=== PATIENT | female | born 1985 | race Caucasian/White ===

== ENCOUNTER 2019-03-01 15:32 | Emergency (ER) | payer OTHER ==
[2019-03-01] MEDS ORDERED: Ketorolac INJ* 30 MG/ML 1 ML VIAL IV PUSH ONE (16:41)
[2019-03-01] MEDS ORDERED: Ondansetron INJ* 2 MG/ML VIAL IV ONE (16:42)
[2019-03-01] MEDS ORDERED: Famotidine IV* 10 MG/ML 2 ML (20 mg) IV SLOW PU ONE (16:42)
[2019-03-01] MEDS ORDERED: Al Hydrox/Mg Hydrox/Simet LIQ* 30 ML UDC PO ONE (16:43)
[2019-03-01] MEDS ORDERED: Lidocaine 2% VISCOUS* 15 ML UDC PO ONE (16:43)
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
[2019-03-01] MEDS ORDERED: NS 0.9% 1000 ML** 1,000 ML IV ONE (16:46)
[2019-03-01] MEDS ORDERED: Albuterol HFA INHALER* 8 gm MDI INH ONE (19:21)
[2019-03-01 20:28] VITALS: BP 126/80
--- NOTE | 2019-03-02 08:10 | UC ---
- EKG/XRAY/CT Xray Comments: wet read correct Course/Dx - Diagnoses Provider Diagnoses: Anxiety, Esophagitis Discharge - Sign-Out/Discharge Documenting (check all that apply): Post-Discharge Follow Up All imaging exams completed and their final reports reviewed: Yes - Discharge Plan Condition: Stable Disposition: HOME Prescriptions: Famotidine TAB 40 MG(NF) [Pepcid TAB 40 MG(NF)] 40 mg PO DAILY #30 tab Patient Education Materials: Dehydration (ED), Diet for Stomach Ulcers and Gastritis (ED), Esophagitis (ED) Referrals: Winter Chacon MD [Primary Care Provider] - 1 Day - Billing Disposition and Condition Condition: STABLE Disposition: Home
== END 2019-03-01 20:13 | disposition home or self-care (01) ==
LOC: UCEAST 15:32
DX: K20.9 Esophagitis, unspecified (principal); F41.9 Anxiety disorder, unspecified; F32.9 Major depressive disorder, single episode, unspecified; F43.10 Post-traumatic stress disorder, unspecified; Z88.0 Allergy status to penicillin
CPT/HCPCS: 71046; 81003; 84702; 96360; 96374; 96375; 99213; A9270-GY; G0463; J1885; J2405

== ENCOUNTER → 2019-03-01 20:53 | Emergency (ER) | payer OTHER ==
--- NOTE | 2019-03-01 21:01 | UC ---
UC General HPI - HPI Summary HPI Summary: patient returns to the urgent care----fearful if something happens tonight she will not be able to get to [facility] and the ambulance would take her to [place] - History of Current Complaint Chief Complaint: UCGeneralIllness Stated Complaint: ANXIETY Time Seen by Provider: 03/01/19 20:55 Hx Obtained From: Patient Hx Last Menstrual Period: 1 month Onset/Duration: Gradual Onset, Lasting Days, Worse Since - today Timing: Constant Onset Severity: Severe Current Severity: Severe - Allergy/Home Medications Allergies/Adverse Reactions: Allergies Allergy/AdvReac Type Severity Reaction Status Date / Time acetaminophen Allergy Severe restless, Verified 03/01/19 16:10 SOB amoxicillin Allergy Severe Hives Verified 03/01/19 16:10 clavulanic acid Allergy Severe Hives Verified 03/01/19 16:10 [From Augmentin] cyclobenzaprine Allergy Severe Nausea Verified 03/01/19 16:10 erythromycin base Allergy Severe respiratory Verified 03/01/19 21:07 reaction Penicillins Allergy Severe Hives Verified 03/01/19 16:10 prochlorperazine Allergy Severe anaphylaxis Verified 03/01/19 16:10 [From Compazine] promethazine [From Phenergan] Allergy Severe anaphylaxis Verified 03/01/19 16:10 tapentadol Allergy Severe throat Verified 03/01/19 16:10 closing ENVIRONMENTAL Allergy THROAT Uncoded 03/01/19 16:10 CLOSED PMH/Surg Hx/FS Hx/Imm Hx Previously Healthy: No Psychological History: Anxiety, Depression, Post Traumatic Stress Disorder Other History Of: Negative For: HIV, Hepatitis B, Hepatitis C, Anticoagulant Therapy - Surgical History Surgical History: Yes Surgery Procedure, Year, and Place: C5-6 CERVICAL FUSION AND PLATING, 2006, [place] - Family History Known Family History: Positive: Cardiac Disease, Hypertension Family History: Substance use disorder, family violence and abuse - Social History Occupation: Disabled Lives: With Family Alcohol Use: Occasionally Alcohol Amount: 3 PER MONTH Substance Use Type: Marijuana Smoking Status (MU): Never Smoked Tobacco Have You Smoked in the Last Year: No Review of Systems All Other Systems Reviewed And Are Negative: Yes Constitutional: Positive: Negative Skin: Positive: Negative Eyes: Positive: Negative ENT: Positive: Negative Respiratory: Positive: Cough Cardiovascular: Positive: Negative Gastrointestinal: Positive: Vomiting Genitourinary: Positive: Negative Motor: Positive: Negative Neurovascular: Positive: Negative Musculoskeletal: Positive: Negative Neurological: Positive: Negative Psychological: Positive: Anxious Is Patient Immunocompromised?: No Physical Exam Triage Information Reviewed: Yes Appearance: Well-Appearing, No Pain Distress, Well-Nourished Vital Signs Reviewed: Yes Eye Exam: Normal Eyes: Positive: Conjunctiva Clear ENT Exam: Normal ENT: Positive: Normal ENT inspection, Hearing grossly normal. Negative: Nasal congestion, Nasal drainage, TMs normal, Trismus, Muffled voice, Hoarse voice, Dental tenderness Dental Exam: Normal Neck exam: Normal Neck: Positive: Supple, Nontender, No Lymphadenopathy Respiratory Exam: Normal Respiratory: Positive: Chest non-tender, Lungs clear, Normal breath sounds, No respiratory distress, No accessory muscle use Cardiovascular Exam: Normal Cardiovascular: Positive: RRR, No Murmur, Pulses Normal, Brisk Capillary Refill Abdominal Exam: Normal Abdomen Description: Positive: Nontender, No Organomegaly, Soft. Negative: CVA Tenderness (R), CVA Tenderness (L) Bowel Sounds: Positive: Present Musculoskeletal Exam: Normal Musculoskeletal: Positive: Strength Intact, ROM Intact, No Edema Neurological Exam: Normal Neurological: Positive: Alert, Muscle Tone Normal Psychological Exam: Other Psychological: Positive: Other: - anxious Skin Exam: Normal Course/Dx - Course Course Of Treatment: transfer patient to ambulance by EMS--- - Diagnoses Provider Diagnosis: Anxiety - Physician Notifications Time Discussed With Above Provider: 21:05 Anjana MILLER Discharge - Sign-Out/Discharge Documenting (check all that apply): Patient Departure All imaging exams completed and their final reports reviewed: No Studies - Discharge Plan Condition: Guarded Disposition: TRANS HIGHER LVL OF CARE FAC Referrals: Winter Chacon MD [Primary Care Provider] - - Billing Disposition and Condition Condition: GUARDED Disposition: Trans Higher Lvl of Care Fac - Attestation Statements Provider Attestation: I was available for consult. This patient was seen by the LUCRET[facility]. The patient was not presented to , seen by or examined by ne -Robert Troncoso MD
[2019-03-01 21:06] VITALS: BP 138/80
== END | disposition short-term general hospital (02) ==
LOC: UCEAST 20:53
DX: F41.9 Anxiety disorder, unspecified (principal)

== ENCOUNTER 2019-03-01 21:50 | Emergency (ER) | payer OTHER ==
[2019-03-01] MEDS ORDERED: ALPRAZolam TAB* 0.5 MG PO ONE (22:29)
[2019-03-01 22:59] LABS: ABS Basophils 0.1 10^3/ul (0-0.2); ABS Eosinophils 0.1 10^3/ul (0-0.6); ABS Lymphocytes 2.2 10^3/ul (1.0-4.8); ABS Monocytes 0.7 10^3/ul (0-0.8); ABS Neutrophils 7.4 10^3/ul (1.5-7.7); Eosinophil % 0.6 %; Hematocrit 39 % (35-47); Hemoglobin 13.1 g/dL (12.0-16.0); Lymphocyte % 20.7 %; Mean Corpuscular HGB Conc 33 g/dL (31-36); Mean Corpuscular Hemoglobin 31 pg (27-31); Mean Corpuscular Volume 92 fL (80-97); Mean Platelet Volume 8.1 fL (7.4-10.4); Platelet Count 372 10^3/uL (150-450); Red Blood Count 4.28 10^6 /uL (3.70-4.87); Red Cell Distribution Width 14 % (10-15); White Blood Count 10.4 10^3/uL (3.5-10.8)
[2019-03-01 23:25] LABS: ALT 14 U/L (7-52); AST 14 U/L (13-39); Albumin 4.8 g/dL (3.2-5.2); Albumin/Globulin Ratio 1.9 (1-3); Alkaline Phosphatase 72 U/L (34-104); Amylase 40 U/L (29-103); Anion Gap 11 mmol/L (2-11); BUN/Creatinine Ratio 17.5 (8-20); Blood Urea Nitrogen 14 mg/dL (6-24); CO2 Carbon Dioxide 23 mmol/L (22-32); Calcium 9.6 mg/dL (8.6-10.3); Chloride 104 mmol/L (101-111); EGFR African American 99.4 (>60); EGFR Non-African American 82.1 (>60); Globulin 2.5 g/dL (2-4); Glucose 91 mg/dL (70-100); Potassium 3.5 mmol/L (3.5-5.0); Sodium 138 mmol/L (135-145); Total Protein 7.3 g/dL (6.4-8.9)
[2019-03-01 23:29] LABS: Acetaminophen < 15 mcg/mL; Alcohol < 10 mg/dL (<10); Salicylate < 2.50 mg/dL (<30)
[2019-03-01 23:33] LABS: HCG Pregnancy < 0.60 mIU/mL
[2019-03-01 23:44] LABS: TSH (Thyroid Stimulating Horm) 1.62 mcIU/mL (0.34-5.60)
[2019-03-02] MEDS ORDERED: LORazepam TAB(*) 1 MG PO ONE (02:44)
--- NOTE | 2019-03-02 03:59 | ED ---
Complex/Multi-Sys Presentation - HPI Summary HPI Summary: Patient is a 34 y/o F presenting to ED with complaints of coughing, vomiting and concerns of FB in her throat. She had been seen earlier today at for similar Sx. Patient had received maalox, pepcid, and toradol with some relief in Sx at and was discharged. However, she returned to later in the day. Per provider note, patient was "fearful if something happens tonight she will not be able to get to [facility] and the ambulance would take her to [place]". EMS was called, [facility] was [facility]. had also reported the patient seemed to be experiencing anxiety and acceleration. In the room, patient states that she has been coughing for the past 4-5 days. She claims that it feels something is stuck in her throat and states that she has been coughing so much that she vomits. PMHx of PTSD, panic attacks, patient claims that she has not slept in the past four days as well. 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 She is additionally on Valium for anxiety. On triage, associated severity is rated 3/10 , nothing is noted to aggravate/alleviate Sx. Home medications and allergies are reviewed. - History Of Current Complaint Chief Complaint: EDPsychosocial Time Seen by Provider: 03/01/19 22:19 Hx Obtained From: Patient Onset/Duration: Lasting Days - 4-5 days, Still Present Timing: Constant, Days - 4-5 days Severity Currently: Mild Severity Initially: Mild Aggravating Factor(s): nothing Alleviating Factor(s): nothing Associated Signs And Symptoms: Positive: Cough, Vomiting, Other - FB in throat, sleep disturbance - Allergies/Home Medications Allergies/Adverse Reactions: Allergies Allergy/AdvReac Type Severity Reaction Status Date / Time acetaminophen Allergy Severe restless, Verified 03/01/19 16:10 SOB amoxicillin Allergy Severe Hives Verified 03/01/19 16:10 clavulanic acid Allergy Severe Hives Verified 03/01/19 16:10 [From Augmentin] cyclobenzaprine Allergy Severe Nausea Verified 03/01/19 16:10 erythromycin base Allergy Severe respiratory Verified 03/01/19 21:07 reaction Penicillins Allergy Severe Hives Verified 03/01/19 16:10 prochlorperazine Allergy Severe anaphylaxis Verified 03/01/19 16:10 [From Compazine] promethazine [From Phenergan] Allergy Severe anaphylaxis Verified 03/01/19 16:10 tapentadol Allergy Severe throat Verified 03/01/19 16:10 closing ENVIRONMENTAL Allergy THROAT Uncoded 03/01/19 16:10 CLOSED PMH/Surg Hx/FS Hx/Imm Hx Endocrine/Hematology History: Denies: Hx Anticoagulant Therapy, Hx Diabetes, Hx Thyroid Disease Cardiovascular History: Reports: Other Cardiovascular Problems/Disorders - ARTERIAL VENOUS MALFORMATION RIGHT HAND Denies: Hx Congestive Heart Failure, Hx Deep Vein Thrombosis, Hx Hypertension , Hx Myocardial Infarction, Hx Pacemaker/ICD Respiratory History: Reports: Hx Asthma - NO INHALER FOR MANY YEARS Denies: Hx Chronic Obstructive Pulmonary Disease (COPD), Hx Lung Cancer, Hx Pneumonia, Hx Pulmonary Embolism, Other Respiratory Problems/Disorders GI History: Reports: Hx Irritable Bowel Denies: Hx Gall Bladder Disease, Hx Gastrointestinal Bleed, Hx Ulcer, Hx Urosepsis, Other GI Disorders History: Denies: Hx Kidney Stones, Hx Renal Disease Musculoskeletal History: Reports: Hx Bursitis - SHOULDERS Denies: Other Musculoskeletal History Sensory History: Denies: Hx Contacts or Glasses, Hx Hearing Aid Opthamlomology History: Denies: Hx Contacts or Glasses Neurological History: Reports: Other Neuro Impairments/Disorders - CARTILAGE DAMAGE TO SHOULDERS Denies: Hx Dementia, Hx Migraine, Hx Seizures, Hx Transient Ischemic Attacks (TIA) Psychiatric History: Reports: Hx Anxiety - ON MEDS, Hx Depression - ON MEDS Denies: Hx Schizophrenia, Hx Bipolar Disorder - Surgical History Surgery Procedure, Year, and Place: C5-6 CERVICAL FUSION AND PLATING, 2006, [place] Hx Anesthesia Reactions: Yes - NEEDS ALOT OF NOVACAINE - Immunization History Immunizations Up to Date: Yes Infectious Disease History: No Infectious Disease History: Denies: Traveled Outside the [place] in Last 30 Days - Family History Known Family History: Positive: Cardiac Disease, Hypertension Family History: Substance use disorder, family violence and abuse - Social History Alcohol Use: Occasionally Alcohol Amount: 3 PER MONTH Substance Use Type: Reports: Marijuana Smoking Status (MU): Never Smoked Tobacco Have You Smoked in the Last Year: No Review of Systems ENT: Other - patient reports feeling as if an FB is stuck in her throat Positive: Cough Positive: Vomiting Psychological: Other - positive - sleep distrubance All Other Systems Reviewed And Are Negative: Yes Physical Exam - Summary Physical Exam Summary: VITAL SIGNS: Reviewed. GENERAL: Patient is a well-developed and nourished female who is shaking in the stretcher. Patient is not in any acute respiratory distress. HEAD AND FACE: No signs of trauma. No ecchymosis, hematomas or skull depressions. No sinus tenderness. EYES: PERRLA, EOMI x 2, No injected conjunctiva, no nystagmus. EARS: Hearing grossly intact. Ear canals and tympanic membranes are within normal limits. MOUTH: Oropharynx within normal limits. NECK: Supple, trachea is midline, no adenopathy, no JVD, no carotid bruit, no c- spine tenderness, neck with full ROM CHEST: Symmetric, no tenderness at palpation LUNGS: Clear to auscultation bilaterally. No wheezing or crackles. CVS: Regular rate and rhythm, S1 and S2 present, no murmurs or gallops appreciated. ABDOMEN: Soft, non-tender. No signs of distention. No rebound no guarding, and no masses palpated. Bowel sounds are normal. EXTREMITIES: FROM in all major joints, no edema, no cyanosis or clubbing. NEURO: Alert and oriented x 3. No acute neurological deficits. Speech is normal and follows commands. SKIN: Dry and warm PSYCH: anxious, impulsive. Triage Information Reviewed: Yes Vital Signs On Initial Exam: Initial Vitals Temp Pulse Resp BP Pulse Ox 96.8 F 66 16 141/96 99 03/01/19 22:06 03/01/19 22:06 03/01/19 22:06 03/01/19 22:06 03/01/19 22:06 Vital Signs Reviewed: Yes Diagnostics - Vital Signs Vital Signs Temp Pulse Resp BP Pulse Ox 03/02/19 03:00 18 03/02/19 01:10 100 F 63 18 133/75 99 03/01/19 22:40 16 03/01/19 22:06 96.8 F 66 16 141/96 99 - Laboratory Lab Results: Lab Results 03/01/19 03/01/19 Range/Units 22:52 22:52 WBC 10.4 (3.5-10.8) 10^3/uL RBC 4.28 (3.70-4.87) 10^6 /uL Hgb 13.1 (12.0-16.0) g/dL Hct 39 (35-47) % MCV 92 (80-97) fL MCH 31 (27-31) pg MCHC 33 (31-36) g/dL RDW 14 (10-15) % Plt Count 372 (150-450) 10^3/uL MPV 8.1 (7.4-10.4) fL Neut % (Auto) 71.3 % Lymph % (Auto) 20.7 % Kleberg % (Auto) 6.4 % Eos % (Auto) 0.6 % Baso % (Auto) 1.0 % Absolute Neuts (auto) 7.4 (1.5-7.7) 10^3/ul Absolute Lymphs (auto) 2.2 (1.0-4.8) 10^3/ul Absolute Monos (auto) 0.7 (0-0.8) 10^3/ul Absolute Eos (auto) 0.1 (0-0.6) 10^3/ul Absolute Basos (auto) 0.1 (0-0.2) 10^3/ul Absolute Nucleated RBC 0.0 10^3/ul Nucleated RBC % 0.0 Sodium 138 (135-145) mmol/L Potassium 3.5 (3.5-5.0) mmol/L Chloride 104 (101-111) mmol/L Carbon Dioxide 23 (22-32) mmol/L Anion Gap 11 (2-11) mmol/L BUN 14 (6-24) mg/dL Creatinine 0.80 (0.51-0.95) mg/dL Est GFR ( Amer) 99.4 (>60) Est GFR (Non-Af Amer) 82.1 (>60) BUN/Creatinine Ratio 17.5 (8-20) Glucose 91 (70-100) mg/dL Calcium 9.6 (8.6-10.3) mg/dL Total Bilirubin 0.50 (0.2-1.0) mg/dL AST 14 (13-39) U/L ALT 14 (7-52) U/L Alkaline Phosphatase 72 (34-104) U/L Total Protein 7.3 (6.4-8.9) g/dL Albumin 4.8 (3.2-5.2) g/dL Globulin 2.5 (2-4) g/dL Albumin/Globulin Ratio 1.9 (1-3) Amylase 40 (29-103) U/L Lipase 11 (11.0-82.0) U/L TSH 1.62 (0.34-5.60) mcIU/mL Beta HCG, Quant < 0.60 mIU/mL Salicylates < 2.50 (<30) mg/dL Acetaminophen < 15 mcg/mL Serum Alcohol < 10 (<10) mg/dL Result Diagrams: 03/01/19 22:52 03/01/19 22:52 Lab Statement: Any lab studies that have been ordered have been reviewed, and results considered in the medical decision making process. Re-Evaluation - Re-Evaluation First Eval Re-Evaluation Time: 23:35 Comment: Scott is medically cleared for MHE. Complex Multi-Symp Course/Dx Course Of Treatment: Patient is a 34 y/o F presenting to ED with complaints of coughing, N/V, and concerns of FB in her throat. She had been seen earlier today at for similar Sx. Patient had received maalox, pepcid, and toradol with some relief in Sx at and was discharged. However, she returned to later in the day. Per provider note, patient was "fearful if something happens tonight she will not be able to get to [facility] and the ambulance would take her to [place]". EMS was called, patient was [facility] to [facility]. had also reported the patient seemed to be experiencing anxiety and acceleration. In the room, patient states that she has been coughing for the past 4-5 days. She claims that it feels something is stuck in her throat and states that she has been coughing so much that she vomits. PMHx of PTSD, panic attacks, patient claims that she has not slept in the past four days as well. 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 She is additionally on Valium for anxiety. On physical exam, susie is noted to be shaking, anxious-appearing, and impulsive. Labs were unremarkable. Patient was medically cleared for MHE. During ED course, patient received ativan 2 mg PO and Xanax 0.5 mg PO. Scott is medically cleared for MHE. 0242 [facility] worker, Josias Rodriguez, reports that the patient's case has been reviewed by Dr. Gomez. Patient will be a mental health hold until the patient can be evaluated by psychiatrist in the morning. Patient is signed out to Dr. Bear at 0700 03/02/19 shift change pending psychiatrist evaluation of patient. - Diagnoses Provider Diagnoses: Anxiety - Physician Notifications Discussed Care Of Patient With: Hyacinth Gomez Time Discussed With Above Provider: 02:42 Instructed by Provider To: Other - 0242 - worker, Josias Rodriguez, reports that the patient's case has been reviewed by Dr. Gomez. Patient will be a mental health hold until the patient can be evaluated by psychiatrist in the morning. Discharge - Sign-Out/Discharge Documenting (check all that apply): Sign-Out Patient Signing out patient TO: Hemant Bear - Discharge Plan Referrals: Winter Chacon MD [Primary Care Provider] - - Attestation Statements Document Initiated by Scribe: Yes Documenting Scribe: MOSHE KING Provider For Whom Scribe is Documenting (Include Credential): KELSEY CRAIN MD Scribe Attestation: MOSHE Dubois scribed for KELSEY CRAIN MD on 03/02/19 at 0613. Status of Scribe Document: Ready
[2019-03-02] MEDS ORDERED: HYDROmorphone TAB* 4 MG PO ONE (04:18)
--- NOTE | 2019-03-02 06:44 | PN ---
ED Flex Patient Progress Note Date of Service: 03/01/19 Subjective: This is a 34 year-old F who is pending admission to [facility] / transfer to another psychiatric facility / discharge to home / or being observed secondary to anxiety. Pt. examined in room 20 at 0640. Pt. lying in bed awake. Very talkative. Offers no new complaints. Objective: Vitals: Most recent vital signs documented below. General NAD, Alert and oriented x3. Laboratory: Current laboratory results documented below. Assessment: Anxiety. Plan: Pending re-evaluation. Vital Signs Temp Pulse Resp BP Pulse Ox 100 F 63 16 133/75 99 03/02/19 01:10 03/02/19 01:10 03/02/19 05:02 03/02/19 01:10 03/02/19 01:10 Lab Results - Entire Visit 03/01/19 03/01/19 22:52 22:52 WBC 10.4 RBC 4.28 Hgb 13.1 Hct 39 MCV 92 MCH 31 MCHC 33 RDW 14 Plt Count 372 MPV 8.1 Neut % (Auto) 71.3 Lymph % (Auto) 20.7 Bennett % (Auto) 6.4 Eos % (Auto) 0.6 Baso % (Auto) 1.0 Absolute Neuts (auto) 7.4 Absolute Lymphs (auto) 2.2 Absolute Monos (auto) 0.7 Absolute Eos (auto) 0.1 Absolute Basos (auto) 0.1 Absolute Nucleated RBC 0.0 Nucleated RBC % 0.0 Sodium 138 Potassium 3.5 Chloride 104 Carbon Dioxide 23 Anion Gap 11 BUN 14 Creatinine 0.80 Est GFR ( Amer) 99.4 Est GFR (Non-Af Amer) 82.1 BUN/Creatinine Ratio 17.5 Glucose 91 Calcium 9.6 Total Bilirubin 0.50 AST 14 ALT 14 Alkaline Phosphatase 72 Total Protein 7.3 Albumin 4.8 Globulin 2.5 Albumin/Globulin Ratio 1.9 Amylase 40 Lipase 11 TSH 1.62 Beta HCG, Quant < 0.60 Salicylates < 2.50 Acetaminophen < 15 Serum Alcohol < 10
--- NOTE | 2019-03-02 07:18 | ED ---
Progress - Progress Note Progress Note: The patient is a sign-out from Dr. Leslye Faye MD, to Dr. Hemant Bear MD, at change of shift at 0700 pending MHU hold and disposition. - Consult/PCP Time Called: 23:00 Re-Evaluation - Re-Evaluation First Eval Re-Evaluation Time: 23:35 Comment: Patienet is medically cleared for MHE. Course/Dx - Diagnoses Provider Diagnoses: Anxiety - Provider Notifications Time Discussed With Above Provider: 02:42 Instructed by Provider To: Other - 0242 - MH worker, Josias Rodriguez, reports that the patient's case has been reviewed by Dr. Gomez. Patient will be a mental health hold until the patient can be evaluated by psychiatrist in the morning. Discharge - Sign-Out/Discharge Documenting (check all that apply): Receiving Sign-Out Receiving patient FROM: Leslye Faye - Patient is a sign-out at shift change pending MHU hold and disposition. - Discharge Plan Referrals: Winter Chacon MD [Primary Care Provider] - - Attestation Statements Document Initiated by Katieibe: Yes Documenting Scribe: Caty Craig Provider For Whom Sanket is Documenting (Include Credential): Dr. Hemant Bear MD Scribe Attestation: Caty Dubois scribed for Dr. Hemant Bear MD on 03/02/19 at 0823. Scribe Documentation Reviewed: Yes Provider Attestation: The documentation as recorded by the Caty esquivel accurately reflects the service I personally performed and the decisions made by me, Dr. Hemant Bear MD Status of Scribe Document: Viewed
[2019-03-02] MEDS ORDERED: Famotidine TAB* 20 MG PO ONE (08:39)
--- NOTE | 2019-03-02 09:18 | ED ---
Progress - Progress Note Progress Note: The patient is a sign-out from Dr. Leslye Faye MD, to Dr. Hemant Bear MD, at change of shift at 0700 03/02/2019 pending MHU hold to talk to psychiatrist and disposition. Per mental health human resource manager Uzair at 0920, the patient is cleared for discharge by Dr. Salgado, psychiatry, with a diagnosis of anxiety and follow up with [facility]. She agrees with this plan and understands the need for return to the ED for any new or worsening symptoms. Course/Dx - Course Course Of Treatment: Patient is a 34 y/o F presenting to ED with complaints of coughing, N/V, and concerns of FB in her throat. She had been seen earlier today at for similar Sx. Patient had received maalox, pepcid, and toradol with some relief in Sx at and was discharged. However, she returned to later in the day. Per provider note, patient was "fearful if something happens tonight she will not be able to get to [facility] and the ambulance would take her to [place]". EMS was called, [facility] had also reported the patient seemed to be experiencing anxiety and acceleration. In the room, patient states that she has been coughing for the past 4-5 days. She claims that it feels something is stuck in her throat and states that she has been coughing so much that she vomits. PMHx of PTSD, panic attacks, patient claims that she has not slept in the past four days as well. 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 She is additionally on Valium for anxiety. On physical exam, patinet is noted to be shaking, anxious-appearing, and impulsive. Labs were unremarkable. Patient was medically cleared for MHE. During ED course, patient received ativan 2 mg PO and Xanax 0.5 mg PO. Patienet is medically cleared for MHE. 0[facility] worker, Josias Rodriguez, reports that the patient's case has been reviewed by Dr. Gomez. Patient will be a mental health hold until the patient can be evaluated by psychiatrist in the morning. Patient is signed out to Dr. Bear at 0700 03/02/19 shift change pending psychiatrist evaluation of patient. - Diagnoses Provider Diagnoses: Anxiety - Provider Notifications Time Discussed With Above Provider: 09:20 Instructed by Provider To: Other - Uzair from mental health services reports that the patient is clear for discharge by Dr. Salgado, psychiatry, with dx of anxiety and follow up with [facility]. Discharge - Sign-Out/Discharge Documenting (check all that apply): Patient Departure - Patient will be discharged home., Receiving Sign-Out Receiving patient FROM: Leslye Faye - Patient is a sign-out at shift change pending MHU hold and disposition. Patient Received Moderate/Deep Sedation with Procedure: No - Discharge Plan Condition: Stable Disposition: HOME Patient Education Materials: Anxiety (ED) Referrals: Winter Chacon MD [Primary Care Provider] - [facility] [Outside] - 3 Days Additional Instructions: Follow up with [facility] in 2-3 days. RETURN TO THE EMERGENCY DEPARTMENT FOR ANY NEW OR WORSENING SYMPTOMS. - Billing Disposition and Condition Condition: STABLE Disposition: Home - Attestation Statements Document Initiated by Scribe: Yes Documenting Scribe: Caty Craig Provider For Whom Scribe is Documenting (Include Credential): Dr. Hemant Bear MD Scribe Attestation: Caty Dubois scribed for Dr. Hemant Bear MD on 03/02/19 at 0932. Status of Scribe Document: Ready
[2019-03-02] MEDS ORDERED: hydrOXYzine HCL TAB* 25 MG PO ONE (10:19)
[2019-03-02 11:45] VITALS: BP 135/55
== END 2019-03-02 11:39 | disposition home or self-care (01) ==
LOC: ED 21:50
DX: F41.9 Anxiety disorder, unspecified (principal); M43.22 Fusion of spine, cervical region; Q27.31 Arteriovenous malformation of vessel of upper limb; F32.9 Major depressive disorder, single episode, unspecified; Z88.6 Allergy status to analgesic agent; Z88.1 Allergy status to other antibiotic agents; Z88.5 Allergy status to narcotic agent; Z88.0 Allergy status to penicillin; Z88.8 Allergy status to other drugs, medicaments and biological substances
CPT/HCPCS: 36415; 80053; 80320; 80329; 82150; 83690; 84443; 84702; 85025; 99283; A9270-GY; G0480

== ENCOUNTER 2019-07-15 16:36 | Inpatient (IN) | payer OTHER ==
[2019-07-15] MEDS ORDERED: LORazepam TAB(*) 1 MG PO ONE (17:19)
[2019-07-15] MEDS ORDERED: Ondansetron ODT TAB* 4 MG PO ONE (17:20)
--- NOTE | 2019-07-15 17:44 | ED ---
Complex/Multi-Sys Presentation - HPI Summary HPI Summary: Pt is a 34 y/o F presenting to the ED with a chief complaint of multiple symptoms present. 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 She reports that she has been having some suicidal thoughts recently. She does not have a specific plan, however she says that if someone were to put a gun to her head she wouldnt necessarily care. She has long hx of anxiety with associated nausea/vomiting, and has recently lost a significant amount of weight. She is prescribed Valium which helps, but it does not help like it used to, which is the same situation with her Zofran. She took Valium and Zofran this morning. Denies abdominal pain, fevers or chills. States that she thinks most of her vomiting and weight loss secondary to anxiety. Patient has a history of a cervical fusion for which she takes Dilaudid. - History Of Current Complaint Chief Complaint: EDMentalHealth Time Seen by Provider: 07/15/19 16:49 Hx Obtained From: Patient Onset/Duration: Gradual Onset, Still Present Timing: Constant, Weeks Severity Currently: Moderate Severity Initially: Moderate Associated Signs And Symptoms: Positive: Nausea, Vomiting, Decreased Oral Intake , Other - SI, anxiety, depression, weight loss - Allergies/Home Medications Allergies/Adverse Reactions: Allergies Allergy/AdvReac Type Severity Reaction Status Date / Time acetaminophen Allergy Severe restless, Verified 03/01/19 16:10 SOB amoxicillin Allergy Severe Hives Verified 03/01/19 16:10 clavulanic acid Allergy Severe Hives Verified 03/01/19 16:10 [From Augmentin] cyclobenzaprine Allergy Severe Nausea Verified 03/01/19 16:10 erythromycin base Allergy Severe respiratory Verified 03/01/19 21:07 reaction Penicillins Allergy Severe Hives Verified 03/01/19 16:10 prochlorperazine Allergy Severe anaphylaxis Verified 03/01/19 16:10 [From Compazine] promethazine [From Phenergan] Allergy Severe anaphylaxis Verified 03/01/19 16:10 tapentadol Allergy Severe throat Verified 03/01/19 16:10 closing ENVIRONMENTAL Allergy THROAT Uncoded 03/01/19 16:10 CLOSED Home Medications: Home Medications HYDROmorphone TAB* [Dilaudid TAB*] 4 mg PO Q6H PRN MDD 16 mg 07/15/19 [History Confirmed 07/15/19] tiZANidine TAB* [Zanaflex TAB*] 2 - 4 mg PO Q12HR PRN 07/15/19 [History Confirmed 07/15/19] PMH/Surg Hx/FS Hx/Imm Hx Previously Healthy: Yes Endocrine/Hematology History: Denies: Hx Anticoagulant Therapy, Hx Diabetes, Hx Thyroid Disease Cardiovascular History: Reports: Other Cardiovascular Problems/Disorders - ARTERIAL VENOUS MALFORMATION RIGHT HAND Denies: Hx Congestive Heart Failure, Hx Deep Vein Thrombosis, Hx Hypertension , Hx Myocardial Infarction, Hx Pacemaker/ICD Respiratory History: Reports: Hx Asthma - NO INHALER FOR MANY YEARS Denies: Hx Chronic Obstructive Pulmonary Disease (COPD), Hx Lung Cancer, Hx Pneumonia, Hx Pulmonary Embolism, Other Respiratory Problems/Disorders GI History: Reports: Hx Irritable Bowel Denies: Hx Gall Bladder Disease, Hx Gastrointestinal Bleed, Hx Ulcer, Hx Urosepsis, Other GI Disorders History: Denies: Hx Kidney Stones, Hx Renal Disease Musculoskeletal History: Reports: Hx Bursitis - SHOULDERS Denies: Other Musculoskeletal History Sensory History: Denies: Hx Contacts or Glasses, Hx Hearing Aid Opthamlomology History: Denies: Hx Contacts or Glasses Neurological History: Reports: Other Neuro Impairments/Disorders - CARTILAGE DAMAGE TO SHOULDERS Denies: Hx Dementia, Hx Migraine, Hx Seizures, Hx Transient Ischemic Attacks (TIA) Psychiatric History: Reports: Hx Anxiety - ON MEDS, Hx Depression - ON MEDS, Hx Post Traumatic Stress Disorder Denies: Hx Schizophrenia, Hx Bipolar Disorder - Surgical History Surgery Procedure, Year, and Place: C5-6 CERVICAL FUSION AND PLATING, 2006, [place] Hx Anesthesia Reactions: Yes - NEEDS ALOT OF NOVACAINE Infectious Disease History: No Infectious Disease History: Denies: Traveled Outside the [place] in Last 30 Days - Family History Known Family History: Positive: Cardiac Disease, Hypertension Family History: Substance use disorder, family violence and abuse - Social History Alcohol Use: Occasionally Alcohol Amount: 3 PER MONTH Hx Substance Use: Yes Substance Use Type: Reports: Marijuana Hx Tobacco Use: No Smoking Status (MU): Never Smoked Tobacco Have You Smoked in the Last Year: No Review of Systems Positive: Other - decreased oral intake, weight loss Positive: Vomiting, Nausea Positive: Anxious, Depressed, Other - SI All Other Systems Reviewed And Are Negative: Yes Physical Exam - Summary Physical Exam Summary: Constitutional: Well-developed, Well-nourished, Alert. (-) Distressed Skin: Warm, Dry HENT: Normocephalic; Atraumatic Eyes: Conjunctiva normal Neck: Musculoskeletal ROM normal neck. (-) JVD, (-) Stridor, (-) Nuchal rigidity Cardio: Rhythm regular, rate normal, Heart sounds normal; Intact distal pulses; Radial pulses are 2+ and symmetric. (-) Murmur Pulmonary/Chest wall: Effort normal. (-) Respiratory distress, (-) Wheezes, (-) Rales Abd: Soft, (-) tenderness, (-) Distension, (-) Guarding, (-) Rebound Musculoskeletal: Engorgement of veins of R wrist. Lymph: (-) Cervical adenopathy Neuro: Alert, Oriented x3 Psych: Anxious, tearful. Triage Information Reviewed: Yes Vital Signs On Initial Exam: Initial Vitals Temp Pulse Resp BP Pulse Ox 98.7 F 51 16 124/97 97 07/15/19 16:41 07/15/19 16:41 07/15/19 16:41 07/15/19 16:41 07/15/19 16:41 Vital Signs Reviewed: Yes Procedures - Sedation Patient Received Moderate/Deep Sedation with Procedure: No Diagnostics - Vital Signs Vital Signs Temp Pulse Resp BP Pulse Ox 07/15/19 16:41 98.7 F 51 16 124/97 97 - Laboratory Result Diagrams: 07/15/19 17:34 07/15/19 17:34 Lab Statement: Any lab studies that have been ordered have been reviewed, and results considered in the medical decision making process. Re-Evaluation - Re-Evaluation 1st re-eval Re-Evaluation Time: 21:50 Change: Unchanged Comment: Labs notable for urine drug screen positive cannabinoids, benzos, opiates, consistent patient's medication. Otherwise labs unremarkable. Pt will be admitted voluntarily as per Dr. Casanova with dx of depression. Complex Multi-Symp Course/Dx Course Of Treatment: 34-year-old female who presents of nausea and vomiting, anxiety and suicidal ideation. Physical exam w anxious-appearing female. Abdomen soft. We'll check labs however patient had long-standing history of nausea and vomiting and on Zofran for this. Do not suspect acute abdominal process. We'll have psychiatry team see her for her suicidal ideation and depression. - Diagnoses Provider Diagnoses: Depression Discharge ED - Sign-Out/Discharge Documenting (check all that apply): Patient Departure - Discharge Plan Condition: Stable Disposition: PSYCHIATRIC FACILITY-[facility] Referrals: Winter Chacon MD [Primary Care Provider] - - Billing Disposition and Condition Condition: STABLE Disposition: Psychiatric Facility [facility] - Attestation Statements Document Initiated by Scribe: Yes Documenting Scribe: Lise Reyes Provider For Whom Scribe is Documenting (Include Credential): Lizy Carlson MD. Scribe Attestation: Lise Dubois, scribed for Lizy Carlson MD. on 07/15/19 at 2203. Scribe Documentation Reviewed: Yes Provider Attestation: The documentation as recorded by the scribeLise accurately reflects the service I personally performed and the decisions made by Lizy morgan MD. Status of Scribe Document: Viewed
[2019-07-15 17:46] LABS: ABS Basophils 0.1 10^3/ul (0-0.2); ABS Monocytes 0.6 10^3/ul (0-0.8); ABS Neutrophils 7.9 10^3/ul (1.5-7.7); Eosinophil % 0.3 %; Hematocrit 36 % (35-47); Hemoglobin 12.3 g/dL (12.0-16.0); Lymphocyte % 19.1 %; Mean Corpuscular HGB Conc 35 g/dL (31-36); Mean Corpuscular Hemoglobin 32 pg (27-31); Mean Corpuscular Volume 91 fL (80-97); Mean Platelet Volume 8.4 fL (7.4-10.4); Platelet Count 405 10^3/uL (150-450); Red Blood Count 3.92 10^6 /uL (3.70-4.87); Red Cell Distribution Width 14 % (10-15); White Blood Count 10.7 10^3/uL (3.5-10.8)
[2019-07-15 17:54] LABS: Urine Appearance Cloudy; Urine Bilirubin Negative (Negative); Urine Blood Negative (Negative); Urine Color Yellow; Urine Glucose Negative (Negative); Urine Ketones Trace (Negative); Urine Nitrite Negative (Negative); Urine Protein Negative (Negative); Urine Specific Gravity 1.017 (1.010-1.030); Urine Urobilinogen Negative (Negative)
[2019-07-15 18:02] LABS: Urine Benzodiazepine Screen Presumptive Positive (None Detect); Urine Opiates Screen Presumptive Positive (None Detect)
[2019-07-15 18:09] LABS: ALT 39 U/L (7-52); AST 16 U/L (13-39); Albumin 4.3 g/dL (3.2-5.2); Albumin/Globulin Ratio 1.6 (1-3); Alkaline Phosphatase 120 U/L (34-104); Anion Gap 9 mmol/L (2-11); Blood Urea Nitrogen 14 mg/dL (6-24); CO2 Carbon Dioxide 26 mmol/L (22-32); Calcium 10.1 mg/dL (8.6-10.3); Chloride 103 mmol/L (101-111); EGFR African American 135.9 (>60); EGFR Non-African American 112.3 (>60); Globulin 2.7 g/dL (2-4); Glucose 94 mg/dL (70-100); Potassium 3.6 mmol/L (3.5-5.0); Sodium 138 mmol/L (135-145)
[2019-07-15 18:14] LABS: Acetaminophen < 15 mcg/mL; Alcohol < 10 mg/dL (<10); Salicylate < 2.50 mg/dL (<30)
[2019-07-15 18:15] LABS: HCG Pregnancy < 0.60 mIU/mL
[2019-07-15 18:29] LABS: TSH (Thyroid Stimulating Horm) 0.85 mcIU/mL (0.34-5.60)
[2019-07-16] MEDS ORDERED: HYDROmorphone TAB* 4 MG ONE (00:26)
[2019-07-16] MEDS ORDERED: Diazepam TAB(*) 10 MG ONE (00:32)
[2019-07-16] MEDS ORDERED: Al Hydrox/Mg Hydrox/Simet LIQ* 30 ML UDC PO PRN (00:32)
[2019-07-16] MEDS ORDERED: tiZANidine TAB* 2 MG PO PRN (00:48)
[2019-07-16 08:34] LABS: HDL Cholesterol 39.2 mg/dL
[2019-07-16] MEDS: HYDROmorphone TAB* 4 MG PO PRN ×3 (08:39→23:24)
[2019-07-16] MEDS: Sertraline* 50 MG TAB PO SCH (10:37)
[2019-07-16] MEDS: Diazepam TAB(*) 10 MG PO PRN ×2 (10:37→23:26)
[2019-07-16] MEDS: Multivitamins/Minerals TAB PO SCH (10:58)
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
[2019-07-16] MEDS ORDERED: QUEtiapine TAB* 25 MG PO SCH (21:00)
[2019-07-16] MEDS: Gabapentin CAP(*) 100 MG PO SCH (21:49)
[2019-07-17] MEDS: Mirtazapine TAB* 15 MG PO PRN (03:49)
[2019-07-17] MEDS: HYDROmorphone TAB* 4 MG PO PRN ×3 (08:43→23:50)
[2019-07-17] MEDS: Sertraline* 50 MG TAB PO SCH (08:43)
[2019-07-17] MEDS: Multivitamins/Minerals TAB PO SCH (08:44)
[2019-07-17] MEDS: Gabapentin CAP(*) 100 MG PO SCH ×2 (08:44→14:22)
[2019-07-17] MEDS: Diazepam TAB(*) 10 MG PO PRN ×2 (11:02→23:55)
--- NOTE | 2019-07-17 18:51 | PN ---
Subjective - Subjective Date of Service: 07/17/19 Service Type: 59002 Hosp care 25 min moderate complexity Subjective: Patient reports ongoing anxiety but says that she managed to sleep a few hours last night, waking up at 4 AM. Says that she is taking ensure and has not used her PRN zofran. Avoiding eating due to history of vomiting but in fact has not vomited in the past day. Not sedated at all at time of visit at 6 PM. Denies any dizziness or orthostasis. Denies panic attacks, suicidality, or hallucinations. Objective - General Observations Appearance: Neat Appears Stated Age: Yes Stature: Thin - close to cachetic, Other (See Comment) Posture: Tense Eye Contact: Average Behavior/Activity: WNL - Interaction Observations Attitude Towards Examiner: Ingratiating Stated Mood: Anxious Affect: Full Speech Pattern/Tone: Clear, Appropriate, Normal Volume Thought Process: Coherent Perception: WNL Thought Content: WNL Hallucination Type: None Delusion Type: None - Cognitive Function Orientation: A&O x 4 Level of Consciousness: Awake Cognition: WNL Estimated Intelligence: Above Normal Insight: WNL Judgment Within Normal Limits: Yes - Medication Compliance Cooperative with Inpatient Medication Regimen: Yes - Group Participation Participates in Group Activities: Yes - However, attributes many psychological issues to physical ones Assessment - Assessment Merits Inpatient Hospitalization: For Stabilization, For Discharge Planning - May have phobic avoidance of eating; need to monitor. Add psychological testing. Inpatient DSM-V Dx: F41.1 Clinical Impression: Woman with long reported history of anxiety. Recent stressors include of dog in January. Not really clear why she presented now. It would be unwise to give PRN benzodiazepines or raise Valium dose. She reports nerve pain; gabapentin can start now and perhaps cymbalta later can replace zoloft. She can benefit from psychotherapy and group therapy although she very much is seeking medications as the way to improve her condition. Prognosis is guarded, estimated length of stay is one week. Plan - Plan Treatment Plan: Name: LOUANN MCCALL Birthdate: 1985 [id number] Continued Medication Management: Different Medication Medications: Current Medications Al Hydrox/Mg Hydrox/Simethicone (Maalox Plus*) 30 ml PO Q4H PRN PRN Reason: INDIGESTION Last Admin: 07/16/19 08:30 Dose: 30 ml Diazepam (Valium Tab(*)) 10 mg PO BID PRN PRN Reason: ANXIETY Last Admin: 07/17/19 11:02 Dose: 10 mg Gabapentin (Neurontin Cap(*)) 400 mg PO TID SHANNON Hydromorphone HCl (Dilaudid Tab*) 4 mg PO Q6H PRN PRN Reason: Pain Last Admin: 07/17/19 16:19 Dose: 4 mg Mirtazapine (Remeron Tab*) 15 mg PO BEDTIME PRN PRN Reason: SLEEP Last Admin: 07/17/19 03:49 Dose: 15 mg Multivitamins/Minerals (Theragran/Minerals Tab*) 1 tab PO DAILY SHANNON Last Admin: 07/17/19 08:44 Dose: Not Given Ondansetron HCl (Zofran Tab*) 4 mg PO Q6H PRN PRN Reason: NAUSEA Quetiapine Fumarate (Seroquel Tab*) 100 mg PO BEDTIME SHANNON Sertraline HCl (Zoloft*) 50 mg PO DAILY SHANNON Last Admin: 07/17/19 08:43 Dose: 50 mg Tizanidine HCl (Zanaflex Tab*) 4 mg PO Q12H PRN PRN Reason: SPASMS Last Admin: 07/16/19 01:30 Dose: 4 mg - Discharge Plan Discharge Plan: Outpatient Follow Up Outpatient Program: [facility]
[2019-07-17] MEDS: Gabapentin CAP(*) 400 MG PO SCH (21:53)
[2019-07-17] MEDS: QUEtiapine TAB* 100 MG PO SCH (21:53)
[2019-07-18] MEDS: Mirtazapine TAB* 15 MG PO PRN (00:50)
[2019-07-18] MEDS: Multivitamins/Minerals TAB PO SCH (08:43)
[2019-07-18] MEDS: HYDROmorphone TAB* 4 MG PO PRN ×2 (08:44→16:20)
[2019-07-18] MEDS: Sertraline* 50 MG TAB PO SCH (08:45)
[2019-07-18] MEDS: Gabapentin CAP(*) 400 MG PO SCH ×4 (08:45→21:16)
[2019-07-18] MEDS: Diazepam TAB(*) 10 MG PO PRN (13:39)
--- NOTE | 2019-07-18 14:07 | PN ---
Subjective - Subjective Date of Service: 07/18/19 Service Type: 91547 Hosp care 15 min low complexity Subjective: Louann is anxious this afternoon and still relates difficulty eating, especially in the AM due to anxiety. She is requesting AM meds to be available upon awakening, as she tends to rise around 07:00, and feels this would improve her distress so that she could consume more of her breakfast. The patient denies SI and states that she is hopeful for discharge, perhaps by Saturday () of this week. Objective - General Observations Appearance: Well Groomed Appears Stated Age: Yes Stature: Thin, Short Posture: WNL Eye Contact: Average Behavior/Activity: WNL - Interaction Observations Attitude Towards Examiner: Cooperative Stated Mood: Anxious Affect: Restricted Speech Pattern/Tone: Clear Thought Process: Coherent Perception: WNL Thought Content: Preoccupation/Ruminations Hallucination Type: None Delusion Type: None - Cognitive Function Orientation: A&O x 4 Level of Consciousness: Awake Cognition: WNL Estimated Intelligence: Normal Insight: WNL - Medication Compliance Cooperative with Inpatient Medication Regimen: Yes - Group Participation Participates in Group Activities: Yes Assessment - Assessment Merits Inpatient Hospitalization: Consolidate Improvements, Pending Safe DC Plan Inpatient DSM-V Dx: F41.1 Clinical Impression: Woman with long reported history of anxiety. Recent stressors include of dog in January. Not really clear why she presented now. It would be unwise to give PRN benzodiazepines or raise Valium dose. She reports nerve pain; gabapentin can start now and perhaps cymbalta later can replace zoloft. She can benefit from psychotherapy and group therapy although she very much is seeking medications as the way to improve her condition. Prognosis is guarded, estimated length of stay is one week. Plan - Plan Treatment Plan: Name: LOUANN MCCALL Birthdate: 1985 [id number] The patient is on mirtazapine 15mg PO qhs, sertraline 50mg PO qday, quetiapine 100mg PO qhs, gabapentin 400mg PO TID and diazepam 10mg PO BID. Patient requires further inpatient stabilization. Continued Medication Management: Different Medication Medications: Current Medications Al Hydrox/Mg Hydrox/Simethicone (Maalox Plus*) 30 ml PO Q4H PRN PRN Reason: INDIGESTION Last Admin: 07/16/19 08:30 Dose: 30 ml Diazepam (Valium Tab(*)) 10 mg PO BID PRN PRN Reason: ANXIETY Last Admin: 07/18/19 13:39 Dose: 10 mg Gabapentin (Neurontin Cap(*)) 400 mg PO TID [facility] Last Admin: 07/18/19 13:39 Dose: 400 mg Hydromorphone HCl (Dilaudid Tab*) 4 mg PO Q6H PRN PRN Reason: Pain Last Admin: 07/18/19 08:44 Dose: 4 mg Mirtazapine (Remeron Tab*) 15 mg PO BEDTIME PRN PRN Reason: SLEEP Last Admin: 07/18/19 00:50 Dose: 15 mg Multivitamins/Minerals (Theragran/Minerals Tab*) 1 tab PO DAILY [facility] Last Admin: 07/18/19 08:43 Dose: Not Given Ondansetron HCl (Zofran Tab*) 4 mg PO Q6H PRN PRN Reason: NAUSEA Quetiapine Fumarate (Seroquel Tab*) 100 mg PO BEDTIME [facility] Last Admin: 07/17/19 21:53 Dose: 100 mg Sertraline HCl (Zoloft*) 50 mg PO DAILY [facility] Last Admin: 07/18/19 08:45 Dose: 50 mg Tizanidine HCl (Zanaflex Tab*) 4 mg PO Q12H PRN PRN Reason: SPASMS Last Admin: 07/16/19 01:30 Dose: 4 mg - Discharge Plan Discharge Plan: Inpatient Hospitalization
[2019-07-18] MEDS: Ondansetron TAB* 4 MG PO PRN (21:20)
[2019-07-18] MEDS: QUEtiapine TAB* 100 MG PO SCH (23:01)
[2019-07-19] MEDS: HYDROmorphone TAB* 4 MG PO PRN ×4 (00:10→20:52)
[2019-07-19] MEDS: Diazepam TAB(*) 10 MG PO PRN ×2 (00:10→09:15)
[2019-07-19] MEDS: Multivitamins/Minerals TAB PO SCH (08:07)
[2019-07-19] MEDS: Gabapentin CAP(*) 400 MG PO SCH ×3 (08:08→20:48)
[2019-07-19] MEDS: Sertraline* 50 MG TAB PO SCH (08:09)
[2019-07-20] MEDS: QUEtiapine TAB* 100 MG PO SCH
[2019-07-20] MEDS: Mirtazapine TAB* 15 MG PO PRN (02:05)
[2019-07-20] MEDS: HYDROmorphone TAB* 4 MG PO PRN ×3 (02:05→15:24)
[2019-07-20] MEDS: Gabapentin CAP(*) 400 MG PO SCH ×2 (06:35→13:49)
[2019-07-20] MEDS: Sertraline* 50 MG TAB PO SCH (06:35)
[2019-07-20] MEDS: Multivitamins/Minerals TAB PO SCH (07:23)
[2019-07-20 08:01] VITALS: BP 115/77
[2019-07-20] MEDS: Ondansetron TAB* 4 MG PO PRN (09:07)
[2019-07-20] MEDS: Diazepam TAB(*) 10 MG PO PRN ×2 (10:06)
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
== END 2019-07-20 16:20 | disposition home or self-care (01) | DRG 756 ==
LOC: ED 16:36 → BSU 21:42
PROVIDERS: ADMIT Psychiatry & Neurology Psychiatry; ATTEND Psychiatry & Neurology Psychiatry
DX: F41.1 Generalized anxiety disorder (principal); R64 Cachexia; R45.851 Suicidal ideations; Z68.1 Body mass index [BMI] 19.9 or less, adult; J45.909 Unspecified asthma, uncomplicated; K58.9 Irritable bowel syndrome, unspecified; F32.9 Major depressive disorder, single episode, unspecified; F43.10 Post-traumatic stress disorder, unspecified; M79.2 Neuralgia and neuritis, unspecified; G89.29 Other chronic pain; Z62.810 Personal history of physical and sexual abuse in childhood; Z81.3 Family history of other psychoactive substance abuse and dependence; Z88.6 Allergy status to analgesic agent; Z88.1 Allergy status to other antibiotic agents; Z88.0 Allergy status to penicillin; Z88.8 Allergy status to other drugs, medicaments and biological substances; Q27.31 Arteriovenous malformation of vessel of upper limb; Z72.89 Other problems related to lifestyle
CPT/HCPCS: 36415; 80053; 80061; 80307; 80320; 80329; 81003; 83036; 84443; 84702; 85025; 96374; 99222; 99231; 99233; 99238; 99284; A9270-GY; G0480